=== PATIENT | female | born 1985 | race American Indian/Alaskan Native ===

== ENCOUNTER 2020-10-13 06:42 | Emergency (ER) | payer SELFPAY | END 2020-10-13 09:00 | disposition home or self-care (01) | LOC: ED 06:42 | DX: Z00.8 Encounter for other general examination (principal); Z53.21 Procedure and treatment not carried out due to patient leaving prior to being seen by health care provider ==

== ENCOUNTER 2021-02-11 11:29 | Emergency (ER) | payer SELFPAY ==
[2021-02-11 13:07] VITALS: BP 93/41
--- NOTE | 2021-02-11 13:23 | Emergency Department Report ---
ED General Adult HPI - General Chief complaint: Medical Clearance Stated complaint: FEVER Time Seen by Provider: 02/11/21 13:10 Source: patient Mode of arrival: Ambulatory Limitations: No Limitations - History of Present Illness Initial comments: Patient presents with URI symptoms. She along with her 3 children have been sick for 2 days. They have all had cough with congestion. They have all had some fevers. She has had no vomiting or diarrhea. He has no back pain. She has had some generalized malaise along with her daughter. There is no dysuria or frequency. She has had a sick contact of 2 to 3 weeks ago. She does not know what that person had, but that person is better. She was concerned that they could have Covid or the flu or something else. They have had no Covid vaccinations. They have had no flu vaccinations. There has been no travel out of the country or locally. Severity scale (0 -10): 7 - Related Data Allergies Allergy/AdvReac Type Severity Reaction Status Date / Time No Known Allergies Allergy Unverified 02/11/21 13:07 ED Review of Systems ROS: Stated complaint: FEVER Other details as noted in HPI Comment: All other systems reviewed and negative Constitutional: see HPI Eyes: denies: eye discharge ENT: as per HPI Respiratory: see HPI Cardiovascular: denies: chest pain Gastrointestinal: denies: vomiting Genitourinary: denies: dysuria Musculoskeletal: as per HPI Skin: denies: rash Neurological: as per HPI Hematological/Lymphatic: denies: easy bruising ED Past Medical Hx - Past Medical History Previous Medical History?: No - Family History Family history: no significant ED Physical Exam - General Limitations: No Limitations, Other General appearance: alert (Pulse ox noted and normal), in no apparent distress - Head Head exam: Present: atraumatic, normocephalic - Eye Eye exam: Present: normal appearance, EOMI - ENT ENT exam: Present: normal orophraynx, normal external ear exam - Neck Neck exam: Present: normal inspection. Absent: meningismus - Respiratory Respiratory exam: Present: normal lung sounds bilaterally. Absent: respiratory distress - Cardiovascular Cardiovascular Exam: Present: regular rate, normal rhythm - GI/Abdominal GI/Abdominal exam: Present: soft - Extremities Exam Extremities exam: Present: full ROM - Back Exam Back exam: Absent: CVA tenderness (R), CVA tenderness (L) - Neurological Exam Neurological exam: Present: alert, oriented X3, CN II-XII intact, normal gait - Psychiatric Psychiatric exam: Present: normal affect, normal mood - Skin Skin exam: Present: warm, dry ED Course Vital Signs 02/11/21 13:06 Temperature 98.8 F Pulse Rate 81 Respiratory 16 Rate Blood Pressure 93/41 [Left] O2 Sat by Pulse 100 Oximetry - Reevaluation(s) Reevaluation #1: 02/11/21 13:22 Flu swab was sent Critical care attestation.: If time is entered above; I have spent that time in minutes in the direct care of this critically ill patient, excluding procedure time. ED Disposition Clinical Impression: Viral URI Disposition: HOME / SELF CARE / HOMELESS Is pt being admited?: No Condition: Stable Instructions: Cough, Adult, [id number], Viral Respiratory Infection, [id number] Additional Instructions: Alternate Tylenol and ibuprofen for fever. Push fluids. Return for problems. Follow-up with your regular doctor for recheck and further management. Referrals: PRIMARY CARE, [Primary Care Provider] - 3-5 Days
== END 2021-02-11 14:31 | disposition home or self-care (01) ==
LOC: ED 11:29
DX: J06.9 Acute upper respiratory infection, unspecified (principal)
CPT/HCPCS: 87400; 99282